=== PATIENT | female | born 1945 | race Caucasian/White ===

== ENCOUNTER 2016-07-30 21:01 | Emergency (ER) | payer OTHER ==
[~2016-07-30] VITALS: Ht 167.6 cm; Wt 76.2 kg
[2016-07-30 21:05] VITALS: BP 125/84; PULSE 65; RESP 17; TEMP 97.6; O2SAT 95
--- NOTE | 2016-07-30 21:15 | NUR ---
Placed in room 05 . Placed on phototypesetting equipment monitor, blood pressure machine and pulse oximeter. To gown for exam. Side rails up. Report given to MANUEL Zavaleta.
--- NOTE | 2016-07-30 21:20 | NUR ---
Pt states that she had a mechanical fall and tripped over her dog's leash. Pt has a contusion and abrasion to the L eye. AAOx4. Will continue to monitor. No distress noted.
--- NOTE | 2016-07-30 21:20 | NUR ---
ER Dr. Kerr at bedside examining patient.
[2016-07-30] MEDS ORDERED: BACITRACIN 1 GM OINT TP ONE (21:30)
[2016-07-30] MEDS ORDERED: HYDROcodone/ACETAMIN 5-325 MG TAB (NORCO/ VICODIN) PO ONE (21:30)
[2016-07-30] MEDS ORDERED: IBUPROFEN 800 MG TABLET PO ONE (21:30)
[2016-07-30 21:35] VITALS: BP 125/84; PULSE 65; RESP 17; TEMP 97.6; O2SAT 95
--- NOTE | 2016-07-30 21:35 | NUR ---
Patient given written and verbal discharge instructions and verbalizes understanding. ER MD discussed with patient the results and treatment provided. Patient in stable condition. ID arm band removed. Rx of [place], Bacitracin, and ibuprofen given. Patient educated on pain management and to follow up with PMD. Pain Scale 0/10. Opportunity for questions provided and answered.
== END 2016-07-30 21:35 | disposition home or self-care (01) ==
LOC: SED 21:01
DX: S01.112A Laceration without foreign body of left eyelid and periocular area, initial encounter (principal); S01.412A Laceration without foreign body of left cheek and temporomandibular area, initial encounter; W01.0XXA Fall on same level from slipping, tripping and stumbling without subsequent striking against object, initial encounter; Y93.K1 Activity, walking an animal; Y99.8 Other external cause status; Y92.89 Other specified places as the place of occurrence of the external cause
CPT/HCPCS: 99283